=== PATIENT | male | born 1995 | race Caucasian/White ===

== ENCOUNTER 2023-05-28 13:00 | Outpatient (CLI) | payer BC | END 2023-05-28 13:01 | disposition home or self-care (01) | LOC: CSHULT 13:00 | PROVIDERS: ATTEND Internal Medicine | DX: R07.89 Other chest pain (principal) ==

== ENCOUNTER 2024-08-03 14:33 | Outpatient (CLI) | payer BC | END 2024-08-03 14:34 | disposition home or self-care (01) | LOC: CSHCT 14:33 | PROVIDERS: ATTEND Family Medicine | DX: M54.2 Cervicalgia (principal) | CPT/HCPCS: 72050 ==